=== PATIENT | female | born 1990 | race Two or more races ===

== ENCOUNTER 2021-03-18 05:29 | Emergency (ER) | payer SELFPAY ==
[~2021-03-18] VITALS: Ht 162.6 cm; Wt 65.0 kg
[2021-03-18 05:35] VITALS: BP 144/99
[2021-03-18] MEDS ORDERED: PERM60CR11 TP (05:40)
--- NOTE | 2021-03-18 05:40 | PHYS DOC ---
General Adult EDM: Chief Complaint: SKIN PROBLEM HPI: HPI: Patient is a 30 year old female who present to ER for evaluation of itchy rash that been going on for 2 weeks. Patient says she went to sleep at her friend now 1 night, she came on the next day, she started having itching all over. Patient said itching and the rash is everywhere on her handS and in her armpit areaS. Patient said the itching is more intense at night when it is hot. Patient denies any cough or fever, no chest pain, no abdominal pain, no nausea vomiting. Review of Systems: Review of Systems: Constitutional: Denies fever or chills. [] Eyes: Denies change in visual acuity. [] HENT: Denies nasal congestion or sore throat. [] Respiratory: Denies cough or shortness of breath. [] Cardiovascular: Denies chest pain or edema. [] GI: Denies abdominal pain, nausea, vomiting, bloody stools or diarrhea. [] : Denies dysuria. [] Musculoskeletal: Denies back pain or joint pain. [] Integument: Positive for itchy rash.] Neurologic: Denies headache, focal weakness or sensory changes. [] Endocrine: Denies polyuria or polydipsia. [] Lymphatic: Denies swollen glands. [] Psychiatric: Denies depression or anxiety. [] Heart Score: C/O Chest Pain: N/A Risk Factors: Risk Factors: DM, Current or recent (<one month) smoker, HTN, HLP, family history of CAD, obesity. Risk Scores: Score 0 - 3: 2.5% MACE over next 6 weeks - Discharge Home Score 4 - 6: 20.3% MACE over next 6 weeks - Admit for Clinical Observation Score 7 - 10: 72.7% MACE over next 6 weeks - Early Invasive Strategies Physical Exam: PE: Constitutional: Well developed, well nourished, no acute distress, non-toxic appearance. [] HENT: Normocephalic, atraumatic, bilateral external ears normal, oropharynx moist, no oral exudates, nose normal. [] Eyes: PERRLA, EOMI, conjunctiva normal, no discharge. [] Neck: Normal range of motion, no tenderness, supple, no stridor. [] Skin: Warm, dry, no erythema, RASH ON HAND, WEBSPACE OF HANDS...BACK....SHOULDER AREA. Back: No tenderness, no CVA tenderness. [] Extremities: No tenderness, no cyanosis, no clubbing, ROM intact, no edema. [] Neurologic: Alert and oriented X 3, normal motor function, normal sensory function, no focal deficits noted. [] Psychologic: Affect normal, judgement normal, mood normal. [] EKG: EKG: [] Radiology/Procedures: Radiology/Procedures: [] Course & Med Decision Making: Course & Med Decision Making Pertinent Labs and Imaging studies reviewed. (See chart for details) Patient is a 30-year-old female who present to ER due to rash all over her body and itching that been going on for 2 weeks. I suspect that patient has scabies or bedbugs. Patient will be discharged home with a prescription for Elimite Dragon Disclaimer: Dragon Disclaimer: This electronic medical record was generated, in whole or in part, using a voice recognition dictation system. Departure Departure Impression: Primary Impression: Scabies infestation Disposition: 01 HOME / SELF CARE / HOMELESS Condition: STABLE Referrals: NO PCP (PCP) Patient Instructions: Scabies Scripts Permethrin (ELIMITE) 60 Gm Cream..g. 1 NATASHA TP ONCE, #60 GM 0 Refills massage into skin from head to soles of feet one time, leave on for 8-14 hours then remove by thorough washing Prov: LEANNE MARIA DO 03/18/21 LEANNE MARIA DO Mar 18, 2021 05:40
== END 2021-03-18 06:20 | disposition home or self-care (01) ==
LOC: ER 05:29
DX: B86 Scabies (principal)
CPT/HCPCS: 99282